=== PATIENT | male | born 1985 | race African-American/Black ===

== ENCOUNTER 2018-08-04 12:49 | Emergency (ER) | payer SELFPAY ==
[~2018-08-04] VITALS: Ht 172.7 cm; Wt 77.3 kg
[2018-08-04 12:54] VITALS: Ht 172.7 cm; Wt 77.3 kg
[2018-08-04] MEDS ORDERED: KEFLEX500 MG PO (13:01)
[2018-08-04 14:02] VITALS: BP 122/80
== END 2018-08-04 14:04 | disposition home or self-care (01) ==
LOC: D.ER 12:49
DX: S51.842A Puncture wound with foreign body of left forearm, initial encounter (principal); X58.XXXA Exposure to other specified factors, initial encounter; Y93.89 Activity, other specified; Y92.89 Other specified places as the place of occurrence of the external cause